=== PATIENT | female | born 1960 | race Caucasian/White ===

== ENCOUNTER 2017-05-12 12:51 | Outpatient (CLI) | payer OTHER ==
--- NOTE | 2017-05-12 15:42 | ULT ---
ULTRASOUND LEFT BREAST 05/12/17 Ultrasound of the posterior left breast was performed to assess nodular density seen on mammography. The nodularity on mammography is felt to represent lymph nodes. No lymph node confirmed by ultrasound. No suspicious sonographic abnormality seen. IMPRESSION: Ultrasound findings are BI-RADS 1: Negative Routine annual screening mammography (for women over age 40) See diagnostic mammogram report for final recommendation. POS: DENIZ
--- NOTE | 2017-05-12 15:42 | ULT ---
RIGHT BREAST ULTRASOUND: HISTORY: Ultrasound of the posterior right breast is performed to assess nodules seen on mammography. FINDINGS: A lymph node is seen posteriorly at 8 o'clock measuring approximately 0.5 cm. No suspicious sonogra phic abnormality is seen. IMPRESSION: BI-RADS 2, benign findings. POS: ABBY
--- NOTE | 2017-05-12 15:45 | MMO ---
DIAGNOSTIC BILATERAL MAMMOGRAMS: HISTORY: Diagnostic study was performed to evaluate new nodular density in posterior aspect of both breasts o n MLO views. These were felt to represent lymph nodes but represent new nodules. FINDINGS: Spot magnification views were obtained. These nodular densities are not well seen on spot views. T here are subtle nodules seen that do appear to represent lymph nodes. Ultrasound of the posterior a spect of both breasts was performed. There were no suspicious sonographic findings. The nodularity seen on mammography is consistent with small posterior lymph nodes. Recommend the patient be retur riki to routine followup. IMPRESSION: Final BI-RADS is BI-RADS 2, benign findings. BIRADS 2: Benign Finding(s) Routine annual screening mammography (for women over age 40) POS: ABBY
== END 2017-05-12 12:52 | disposition home or self-care (01) ==
LOC: MAMMO 12:51
PROVIDERS: ATTEND Family Medicine
DX: R92.2 Inconclusive mammogram (principal)
CPT/HCPCS: 77066; G0204